=== PATIENT | male | born 1975 | race Caucasian/White ===

== ENCOUNTER → 2017-11-09 | Outpatient (CLI) | payer OTHER ==
--- NOTE | 2017-11-09 13:32 | FL ---
ESOPHOGRAM. HISTORY: Dysphagia Esophagram was performed per the air contrast technique. The patient swallowed barium and effervesce nt crystals without difficulty or delay. Esophageal peristalsis and motility appear to be within normal limits. There is no evidence for filling defect, mass or diverticulum. No hiatal hernia seen. Subsequently single contrast cervical esophagram was performed which demonstrates mild aspiration. IMPRESSION: Mild aspiration with no additional abnormalities seen at this time.
== END | disposition home or self-care (01) ==
LOC: RADFLMAIN 10:38
PROVIDERS: ATTEND Otolaryngology Otolaryngic Allergy
DX: J37.0 Chronic laryngitis (principal)
CPT/HCPCS: 74220

== ENCOUNTER → 2019-05-01 | Outpatient (CLI) | payer OTHER ==
--- NOTE | 2019-05-01 08:46 | US ---
EXAMINATION TYPE: US kidneys/renal and bladder DATE OF EXAM: 05/01/2019 COMPARISON: CT 04/30/14, US 05/08/14 CLINICAL HISTORY: R13.9 hematuria. EXAM MEASUREMENTS: Right Kidney: 12.1 x 5.9 x 5.5 cm Left Kidney: 11.8 x 6.6 x 5.8 cm Post Void Residual Volume: 48.5 mL Right Kidney: No hydronephrosis or masses seen, multiple echogenic foci throughout kidney. ? tiny sto [place]. Unable to see shadowing. Left Kidney: Multiple echogenic foci throughout kidney. ? tiny stones. Unable to see shadowing. Mild hydronephrosis noted. Renal pelvis = 2.4 cm Bladder: wnl Bilateral Jets seen: Yes Normal Post Void Residual: Upper limits of normal. There is no evidence for hydronephrosis at this point in time. No nephrolithiasis is seen. No angi s are identified. The urinary bladder is anechoic. Bilateral ureteral jets are seen. IMPRESSION: 1 suspect mild left-sided hydronephrosis. 2. Small nonobstructing calculi seen bilaterally.
== END | disposition home or self-care (01) ==
LOC: RADUSMAIN 07:38
PROVIDERS: ATTEND Internal Medicine
DX: N20.0 Calculus of kidney (principal)
CPT/HCPCS: 76770

== ENCOUNTER → 2021-01-10 | Outpatient (CLI) | payer BC, OTHER | END | disposition home or self-care (01) | LOC: RADMRIMAIN 12:47 | PROVIDERS: ATTEND Internal Medicine | DX: Z53.9 Procedure and treatment not carried out, unspecified reason (principal) ==

== ENCOUNTER → 2021-01-21 | Outpatient (CLI) | payer BC, OTHER ==
--- NOTE | 2021-01-23 11:08 | CT ---
EXAMINATION TYPE: CT soft tissue neck wo con DATE OF EXAM: 01/21/2021 COMPARISON: None HISTORY: left sided neck pain, no injury. CT DLP: 375.6 mGycm CONTRAST: Patient injected with 0 mL of Isovue 300. TECHNIQUE: Axial images at 3 mm thick sections. Reconstructed images in the coronal plane and sagitt al plane are reviewed. FINDINGS: Limited CT sections are obtained the lung apices. The lung apices appear clear. CT neck: The torus tubarius and fossa of Rosenmuller are normal. Inspector Material Disposition spaces are normal. Para nasal sinuses and mastoid air cells are clear. Parotid glands appear normal and symmetrical. Submandibular glands, are normal. Parapharyngeal spac es are normal. No suspicious adenopathy is evident. The hypopharynx appears within normal limits. Small left submental lymph node is present. Vocal cord level appear symmetrical. Thyroid as visualized is normal. Mild kyphosis in the upper cervical spine is evident. Diffuse loss of disc height is through the mid cervical spine. Posterior endplate spurring is noted greatest at C5-6 and C6-7. Left foraminal narrow ing may be present C4-5 bilaterally at C5-6 and C6-7 due to uncovertebral joint hypertrophy. Endplate spurring at C5-6 may be contributing to canal narrowing. Consider MRI for additional evaluation. IMPRESSIONS: 1. No acute soft tissue abnormality to account for neck pain. 2. Degenerative disc changes endplate spurring and uncovertebral joint hypertrophy within the cervica l spine. Severe foraminal stenosis is noted C5-6 C6-7. Consider MRI for closer evaluation of the cerv ical spine
== END | disposition home or self-care (01) ==
LOC: RADCTMAIN 18:49
PROVIDERS: ATTEND Internal Medicine
DX: M54.2 Cervicalgia (principal)
CPT/HCPCS: 70490

== ENCOUNTER → 2022-10-02 | Outpatient (CLI) | payer BC, OTHER ==
--- NOTE | 2022-10-02 21:37 | XR ---
EXAMINATION TYPE: XR chest 2V DATE OF EXAM: 10/02/2022 COMPARISON: Prior chest x-ray August 21, 2015 HISTORY: Chest pain. TECHNIQUE: Frontal and lateral views of the chest are obtained. FINDINGS: There is no suspicious new focal air space opacity, pleural effusion, or pneumothorax seen . The cardiac silhouette size is stable and within normal limits. The osseous structures are intac t. IMPRESSION: No acute process. No significant change from prior.
== END | disposition home or self-care (01) ==
LOC: RADXRMAIN 17:35
PROVIDERS: ATTEND Internal Medicine
DX: R07.9 Chest pain, unspecified (principal)
CPT/HCPCS: 71046